=== PATIENT | female | born 1990 | race Caucasian/White ===

== ENCOUNTER 2021-08-24 15:34 | Emergency (ER) | payer MEDICARE, OTHER ==
[2021-08-24 16:12] VITALS: BP 151/94; PULSE 86; RESP 16; TEMP 98.9
--- NOTE | 2021-08-24 16:40 | XR ---
EXAMINATION TYPE: XR shoulder complete LT DATE OF EXAM: 08/24/2021 COMPARISON: NONE INDICATION: Pain TECHNIQUE: 3 views of the left shoulder FINDINGS: Increased acromiohumeral distance with mild inferior subluxation of the humeral head in relation to t he glenoid. Underlying joint effusion cannot be excluded. No definite acute fracture line identified. No signs of rotator cuff calcific tendinitis. IMPRESSION: As above.
--- NOTE | 2021-08-24 18:45 | ED ---
Upper Extremity HPI - General Chief Complaint: Extremity Injury, Upper Stated Complaint: shoulder pain/swelling Time Seen by Provider: 08/24/21 18:40 Source: patient, RN notes reviewed Mode of arrival: ambulatory Limitations: no limitations - History of Present Illness Initial Comments: This is a pleasant 31-year-old female with a history of autism. She presents to the emergency department with her mother. For about 1 week the patient has been complaining of a popping sensation in her left shoulder. She saw her regular physician was referred to orthopedics. However mother states the police department was 3 weeks out. For this reason she brought her here for evaluation. Patient denying any pain at rest. She does describe a popping sensation when she moves the shoulder. There is been no injury. No neck pain or elbow pain. No other orthopedic complaints. No headache, no fever or chills, no changes in vision or hearing, no sore throat or difficulty with speech, no neck pain, no chest pain or shortness of breath, no abdominal pain, no nausea or vomiting, no changes in urination or bowel movements, no numbness or tingling, no skin rashes or lesions. MD Complaint: Injury to:: left, shoulder - Related Data Previous Rx's Medication Instructions Recorded Amoxicillin 500 mg PO Q8H #30 capsule 06/07/15 Allergies Allergy/AdvReac Type Severity Reaction Status Date / Time No Known Allergies Allergy Verified 08/24/21 16:12 Review of Systems ROS Statement: Those systems with pertinent positive or pertinent negative responses have been documented in the HPI. ROS Other: All systems not noted in ROS Statement are negative. Past Medical History Additional Past Medical History / Comment(s): carpel tunnel, autistic History of Any Multi-Drug Resistant Organisms: None Reported Past Surgical History: No Surgical Hx Reported Past Psychological History: No Psychological Hx Reported Smoking Status: Never smoker Past Alcohol Use History: None Reported Past Drug Use History: None Reported General Exam Limitations: no limitations General appearance: alert, in no apparent distress Head exam: Present: atraumatic, normocephalic, normal inspection Eye exam: Present: normal appearance, PERRL, EOMI. Absent: scleral icterus, conjunctival injection, periorbital swelling ENT exam: Present: normal exam, mucous membranes moist Neck exam: Present: normal inspection, full ROM. Absent: tenderness, meningismus, lymphadenopathy Respiratory exam: Present: normal lung sounds bilaterally. Absent: respiratory distress, wheezes, rales, rhonchi, stridor Cardiovascular Exam: Present: regular rate, normal rhythm, normal heart sounds. Absent: systolic murmur, diastolic murmur, rubs, gallop, clicks GI/Abdominal exam: Present: soft, normal bowel sounds. Absent: distended, tenderness, guarding, rebound, rigid Extremities exam: Present: normal inspection, full ROM, normal capillary refill, other (Does have some crepitus with range of motion. Some minimal pain with Flores test. Otherwise patient has full range of motion with regards to all planes of the left shoulder. Internal/external rotation are full. Abduction is full. Patient has full strength. Neurovascular status intact. ). Absent: tenderness, pedal edema, joint swelling, calf tenderness Back exam: Present: normal inspection Neurological exam: Present: alert, oriented X3, CN II-XII intact Psychiatric exam: Present: normal affect, normal mood Skin exam: Present: warm, dry, intact, normal color. Absent: rash Course Vital Signs 08/24/21 16:09 Temperature 98.9 F Pulse Rate 86 Respiratory 16 Rate Blood Pressure 151/94 O2 Sat by Pulse 100 Oximetry Medical Decision Making - Medical Decision Making Patient's x-ray shows evidence of subluxation. Joint effusion is possible. There was no evidence of infectious process. Patient was neurovascularly intact. No injury. No osseous lesion. No fracture. No dislocation. Labs patient follow-up with orthopedics. Mother agrees with this treatment plan. Sling was applied. Patient told to remove the sling and take the arm through range of motion to avoid frozen shoulder. Patient was told to return to the ER for any signs or symptoms worsen. Told to return immediately if any other problems arise. All questions answered. Treatment plan discussed. Patient in agreement Every effort has been made to ensure accuracy of this dictation. However, due to the limitations of electronic medical records and dictation devices, errors in charting still occur. Supervising physician is Dr. Toussaint - Radiology Data Radiology results: report reviewed, image reviewed Disposition Clinical Impression: Shoulder subluxation, left Disposition: HOME SELF-CARE Condition: Good Instructions (If sedation given, give patient instructions): How to Use a Sling (ED), Shoulder Pain (ED) Additional Instructions: Call tomorrow morning to schedule an appointment with the orthopedic physician. Wear the sling as directed. Do not wear the sling all the time. Use [id number] acetaminophen and/or ibuprofen for pain control. Follow-up with your regular physician as directed. Return to the ER immediately if any symptoms worsen, new symptoms arise, or any other problems develop. Is patient prescribed a controlled substance at d/c from ED?: No Referrals: Carla Turner DO [Doctor of Osteopathic Medicine] - 08/28/21 Time of Disposition: 18:53
== END 2021-08-24 18:58 | disposition home or self-care (01) ==
LOC: EC 15:34 → EEVIPCON 15:34 → EC 18:58
DX: S43.002A Unspecified subluxation of left shoulder joint, initial encounter (principal); X50.1XXA Overexertion from prolonged static or awkward postures, initial encounter
CPT/HCPCS: 99283